=== PATIENT | female | born 1970 | race Hispanic/Latino ===

== ENCOUNTER → 2021-12-30 | Outpatient (CLI) | payer BC | END | disposition home or self-care (01) | LOC: RAH 13:53 | PROVIDERS: ATTEND Family Medicine | DX: N63.25 Unspecified lump in the left breast, overlapping quadrants (principal) | CPT/HCPCS: 76641; 77066 ==

== ENCOUNTER → 2022-02-03 | Outpatient (CLI) | payer BC ==
[~2022-02-03] MED LIST: LIDOCAINE HCL 1% 20 ML VIAL ONE
[2022-02-03 08:52] LABS: INR 0.94 (0.85-1.15); PROTHROMBIN TIME 10.3 SEC (9.6-11.6)
[2022-02-03 08:53] LABS: PARTIAL THROMBOPLASTIN TIME 28.1 SEC (26.3-35.5)
== END | disposition home or self-care (01) ==
LOC: RAH 08:06
PROVIDERS: ATTEND Family Medicine
DX: D24.2 Benign neoplasm of left breast (principal); Z79.01 Long term (current) use of anticoagulants
CPT/HCPCS: 19083; 85610; 85730; 36415; A4215 ×3

== ENCOUNTER 2022-02-04 04:43 | Emergency (ER) | payer BC ==
[~2022-02-04] VITALS: Ht 152.4 cm; Wt 53.5 kg
[2022-02-04 06:50] LABS: BASOPHILS % (AUTO) 1.7 % (0.0-5.0); EOSINOPHILS % (AUTO) 1.7 % (0.0-8.0); HEMATOCRIT 44.1 % (36-48); LYMPHOCYTES % (AUTO) 36.3 % (21.0-51.0); MEAN CORPUSCULAR HEMOGLOBIN 29.1 pg (27.0-33.0); MEAN CORPUSCULAR HGB CONC 33.3 g/dL (32.0-36.0); MEAN CORPUSCULAR VOLUME 87.3 fL (79-99); MONOCYTES % (AUTO) 5.6 % (3.0-13.0); NEUTROPHILS % (AUTO) 54.5 % (40.0-77.0); PLATELET COUNT (AUTO) 210 K/uL (130-400); RED BLOOD CELL COUNT(AUTO) 5.05 MIL/uL (4.00-5.50); RED CELL DISTRIBUTION WIDTH 12.8 % (11.0-15.5); WHITE BLOOD COUNT (AUTO) 4.1 K/uL (4.8-10.8)
[2022-02-04 07:05] LABS: ALBUMIN 4.1 g/dL (3.5-5.0); CREATININE 0.6 mg/dL (0.5-1.5); POTASSIUM 4.1 mmol/L (3.5-5.1); TOTAL PROTEIN, SERUM 7.4 g/dL (6.0-8.3)
[2022-02-04 07:13] LABS: INR 0.93 (0.85-1.15); PROTHROMBIN TIME 10.2 SEC (9.6-11.6)
[2022-02-04 07:14] LABS: PARTIAL THROMBOPLASTIN TIME 28.1 SEC (26.3-35.5)
[2022-02-04 10:32] VITALS: BP 101/77
== END 2022-02-04 10:37 | disposition home or self-care (01) ==
LOC: EDH 04:43
DX: M79.602 Pain in left arm (principal); R20.0 Anesthesia of skin; G89.18 Other acute postprocedural pain; R07.89 Other chest pain; Z98.86 Personal history of breast implant removal; Z90.12 Acquired absence of left breast and nipple; Z90.49 Acquired absence of other specified parts of digestive tract
CPT/HCPCS: 36415; 71045; 80053; 84484; 85025; 85610; 85730; 93971